=== PATIENT | male | born 1975 | race African-American/Black ===

== ENCOUNTER 2024-04-05 10:08 | Emergency (ER) | payer SELFPAY ==
[2024-04-05] MEDS ORDERED: Ibuprofen 200 MG TAB ONE ×2 (10:51→10:53)
== END 2024-04-05 11:05 | disposition home or self-care (01) ==
LOC: ERS 10:08
DX: L02.225 Furuncle of perineum (principal); I10 Essential (primary) hypertension; E11.9 Type 2 diabetes mellitus without complications
CPT/HCPCS: 99283